=== PATIENT | female | born 1975 | race Caucasian/White ===

== ENCOUNTER 2017-08-30 03:55 | Emergency (ER) | payer OTHER ==
[~2017-08-30] VITALS: Ht 157.5 cm; Wt 70.3 kg
[2017-08-30] MEDS ORDERED: SYNTHROID112 MCG (04:11)
[2017-08-30 05:05] LABS: URINE BILIRUBIN NEGATIVE (Negative); URINE BLOOD 3+ (Negative); URINE CLARITY CLEAR; URINE COLOR STRAW; URINE GLUCOSE-RANDOM NEGATIVE (Negative); URINE KETONES NEGATIVE (Negative); URINE LEUKOCYTES-REFLEX NEGATIVE (Negative); URINE NITRITE-REFLEX NEGATIVE (Negative); URINE PROTEIN NEGATIVE (Negative); URINE SPECIFIC GRAVITY <= 1.005 (1.005-1.030); URINE UROBILINOGEN 0.2 E.U./dl (0.2-1.0)
[2017-08-30 05:11] LABS: ABSOLUTE EOSINOPHILS 0.1 thou/uL (0.0-0.7); ABSOLUTE LYMPHOCYTES 2.4 thou/uL (0.8-5.3); ABSOLUTE MONOCYTES 0.5 thou/uL (0.0-1.2); BASOPHILS 0.6 %; EOSINOPHILS 1.7 %; HEMATOCRIT 38.7 % (37.0-47.0); LYMPHOCYTES 33.9 %; MCH 30.3 pg (26.0-34.0); MCHC 33.4 g/dL (28.0-37.0); MCV 90.7 fL (80.0-100.0); MONOCYTES 6.4 %; MPV 7.7 fl. (7.2-11.1); NUCLEATED RBCS 0 /100WBC; PLATELET COUNT* 216 thou/uL (150-400); POLYS 57.4 %; RBC 4.27 mil/uL (4.20-5.00); RDW-CV 13.1 % (10.5-14.5)
[2017-08-30 05:20] LABS: ANION GAP 6 mmol/L (7-16); BUN 12 mg/dL (7-18); CALCIUM 8.8 mg/dL (8.5-10.1); CHLORIDE 108 mmol/L (98-107); CO2 28 mmol/L (21-32); GLUCOSE 99 mg/dL (70-99); POTASSIUM 4.5 mmol/L (3.5-5.1); SODIUM 142 mmol/L (136-145)
[2017-08-30 05:26] LABS: ALBUMIN 3.5 g/dL (3.4-5.0); ALKALINE PHOSPHATASE 74 U/L (46-116); SGOT 14 U/L (15-37); SGPT 18 U/L (30-65); TOTAL BILIRUBIN 0.4 mg/dL (<0.1-1.0); TOTAL PROTEIN 6.7 g/dL (6.4-8.2); TROPONIN-I LEVEL <0.06 ng/mL (<0.06)
[2017-08-30 05:40] LABS: SQUAMOUS 4-10 Moderate /LPF (0-3)
[2017-08-30 05:41] LABS: BACTERIA-REFLEX 1-9 Few /HPF (None Seen); CASTS None Seen /LPF (None Seen); CRYSTALS None Seen /LPF (None Seen); MUCUS 0-3 Light strn/LPF (None Seen); URINE RBC 3-10 Few /HPF (0-2); URINE WBC-REFLEX 0-5 Rare /HPF (0-5)
[2017-08-30 06:06] VITALS: BP 120/66
--- NOTE | 2017-08-30 16:25 | EKG ---
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 : 1975 Requested By: Patricia Christiansen Order Number: [id number] MD: Danilo Gallagher Measurements Intervals [place] Rate: 82 P: 47 SD: 155 QRS: -12 QRSD: 104 T: 27 QT: 391 QTc: 457 Interpretive Statements Sinus rhythm Low voltage, precordial leads Left anterior fascicular block Cannot rule out anteroseptal infarct, old No previous ECG available for comparison Electronically Signed On 08-30-2017 16:25:16 TALENT DEVELOPMENT DIRECTOR by Danilo Gallagher [email or web address] <ELECTRONICALLY SIGNED> By: Danilo Gallagher MD, [facility] 08/30/17 1625 [id number] 4 Danilo Gallagher MD, FACC /EPI
== END 2017-08-30 06:07 | disposition home or self-care (01) ==
LOC: M.ERS 03:55
PROVIDERS: Personal Emergency Response Attendant
DX: F41.9 Anxiety disorder, unspecified (principal); E03.9 Hypothyroidism, unspecified